=== PATIENT | male | born 1950 | race Caucasian/White ===

== ENCOUNTER 2016-08-17 09:40 | Emergency (ER) | payer OTHER ==
[~2016-08-17] VITALS: Ht 182.9 cm; Wt 97.7 kg
[~2016-08-17 09:40] MED LIST: ANDROGEL1% TP; CHELATED IRON27 MG PO; CLONAZEPAM1 MG PO; COMBIVENT INH14.7 GM IH; CRESTOR 10MG10 MG PO; DILTIAZEM240 M1 PO; LAMICTAL150 MG PO; LEVITRA10 MG PO; MIRAPEX0.25 MG PO; NAPROSYN375 MG PO; PHENTERMINE37.5 M1 PO; ROCEPHIN VIA1 G/VIAL IM; SPIRIVA INH IH; SYMBICORT1 AE3 IH; TERAZOSIN HCL5 M1 PO; VENLAFAXINE75 MG PO; VERAMYST27.5 MCG/A NS
[2016-08-17] MEDS ORDERED: CEFDINIR300 MG PO (13:14)
[2016-08-17] MEDS ORDERED: PREDNISONE20 M1 PO (13:14)
[2016-08-17 14:23] VITALS: BP 122/78
== END 2016-08-17 14:26 | disposition home or self-care (01) ==
LOC: ED 09:40
DX: J20.9 Acute bronchitis, unspecified (principal); J45.901 Unspecified asthma with (acute) exacerbation; F17.210 Nicotine dependence, cigarettes, uncomplicated; E11.9 Type 2 diabetes mellitus without complications
CPT/HCPCS: J0696; J2930

== ENCOUNTER → 2017-12-30 | Outpatient (CLI) | payer MEDICARE, OTHER ==
[~2017-12-30] MED LIST changes: +CEFDINIR300 MG PO; +PREDNISONE20 M1 PO
== END ==
LOC: RAD 09:53
DX: R42 Dizziness and giddiness (principal); R55 Syncope and collapse

== ENCOUNTER → 2018-07-18 | Outpatient (CLI) | payer MEDICARE, OTHER | LOC: RAD 10:01 | DX: M79.672 Pain in left foot (principal) ==

== ENCOUNTER 2019-09-22 13:00 | Outpatient (RCR) | payer MEDICARE, OTHER | END 2019-09-27 | disposition still patient (30) | LOC: PT | DX: Z98.1 Arthrodesis status (principal) ==

== ENCOUNTER 2019-10-04 15:00 | Outpatient (RCR) | payer MEDICARE, OTHER | END 2019-10-04 15:30 | disposition still patient (30) | LOC: PT 15:00 | DX: Z98.1 Arthrodesis status (principal) ==

== ENCOUNTER → 2023-11-19 | Outpatient (CLI) | payer MEDICARE, OTHER | LOC: RAD 11:35 | DX: M79.89 Other specified soft tissue disorders (principal); M25.552 Pain in left hip; W19.XXXA Unspecified fall, initial encounter ==